=== PATIENT | female | born 1990 | race Caucasian/White ===

== ENCOUNTER 2018-02-26 04:11 | Inpatient (IN) | payer BC ==
[2018-02-26] MEDS ORDERED: Ibuprofen TAB* 600 MG ONE (04:31)
[2018-02-26] MEDS ORDERED: OXYTOCIN* 10 UNITS/ML 1 ML VIAL IM ONE (04:54)
[2018-02-26] MEDS ORDERED: RHO D Immune Globulin (HUMAN)* 300 MCG = 1,500 I.U. INJ IM ONE (04:54)
[2018-02-26] MEDS ORDERED: Acetaminophen TAB* 325 MG PO PRN (04:54)
[2018-02-26] MEDS ORDERED: Dibucaine 1% 28.35 GM TUBE PR PRN (04:54)
[2018-02-26] MEDS ORDERED: Witch Hazel PAD* JAR TOPICAL PRN (04:54)
[2018-02-26] MEDS ORDERED: Ibuprofen TAB* 600 MG PO PRN (04:54)
[2018-02-26] MEDS ORDERED: Measles, Mumps,Rubella VACC* 0.5 ML/VIAL SUBCUT ONE (04:54)
[2018-02-26] MEDS ORDERED: Glycerin ADULT SUPP PR PRN (04:54)
--- NOTE | 2018-02-26 05:11 | HP ---
General Information - General Information Maternal Age: 27 Grav: 2 Para: 1 SAB: 0 IEA: 0 Estimated Due Date: 03/01/18 Determined By: LMP Gestational Age in Weeks and Days: 39 Weeks and 4 Days Maternal Blood Type and Rh: A Negative - Results this Serology/RPR Result: Non-Reactive Rubella Result: Immune HBsAg Result: Negative HIV Result: Negative GBS Culture Result: Negative Past Medical History Delivery History: Hx Uncomplicated Vaginal Delivery Pertinent Past Medical History: Non-Contributory Pertinent Past Surgical History: See Records Pertinent Family History: Non-Contributory - rubella equivocal x 2 Review of Systems Constitutional: Comfortable CV Complaint: No Respiratory: Shortness of Breath: No Gastrointestinal: Normal Bowel Movement Genitourinary: Bleeding Neurological: No Headache - Comments ROS completed after delivery Exam Allergies/Adverse Reactions: Allergies No Known Allergies Allergy (Verified 05/05/16 17:46) 106/64, 98-68-18 after delivery - Measurements Height: 5 ft 3 in Weight: 177 lb Weight in lbs: 177 Body Mass Index (BMI): 31.3 Pre- Weight: 130 lb Weight Gained This : 47 lbs and 0 ozs - Exam Breast: - - soft, no masses Extremities: Edema - trace Heart: Normal Rhythm/Heart Sounds HEENT: No Significant Findings Lungs: Clear Bilaterally Reflexes: DTR 2+ Thyroid: No Thyromegaly - Abdominal Exam Abdomen Exam: Non-Tender Abdomen Exam Comment: fundus firm - Ultrasound/Biophysical Profile Ultrasound Status: Not Done Assessment/Plan - Plan Plan Comment: Assessment: at 39w 4 d, precipitous labor and delivery Rh negative Shoulder dystocia See delivery note Plan: routine PP care Pitocin 10 u IM given - Date/Time of Admission Date of Admission: 02/26/18 Time of Admission: 04:10
[2018-02-26] MEDS ORDERED: Phenylephrine IV* 40 MCG/ML 10 ML SYRINGE IV PUSH PRN ×2 (06:51)
[2018-02-26] MEDS ORDERED: Sodium Citrate/Citric Acid* 15 ML UDC PO PRN (06:51)
[2018-02-26] MEDS ORDERED: OBEPIDURAL* 250 ML EPIDURAL SCH (07:00)
[2018-02-26] MEDS: Docusate CAP* 100 MG PO SCH ×3 (09:08→20:26)
[2018-02-27 06:43] LABS: Hematocrit 38 % (35-47); Hemoglobin 12.7 g/dl (12.0-16.0); Mean Corpuscular HGB Conc 34 g/dl (31-36); Mean Corpuscular Hemoglobin 27 pg (27-31); Mean Corpuscular Volume 81 fL (80-97); Platelet Count 117 10^3/ul (150-450); Red Blood Count 4.65 10^6/ul (4.00-5.40); Red Cell Distribution Width 17 % (10.5-15); White Blood Count 9.2 10^3/ul (3.5-10.8)
[2018-02-27 07:31] LABS: ABS Basophils 0.1 10^3/ul (0-0.2); ABS Eosinophils 0.3 10^3/ul (0-0.6); ABS Lymphocytes 1.7 10^3/ul (1.0-4.8); ABS Monocytes 0.5 10^3/ul (0-0.8); ABS Neutrophils 6.7 10^3/ul (1.5-7.7); ABS Nucleated RBC 0 10^3/ul; Eosinophil % 3.1 % (0-6); Lymphocyte % 18.5 % (25-47); Nucleated Red Blood Cells % 0.1
[2018-02-27] MEDS ORDERED: Ferrous Gluconate TAB* 324 MG TAB PO SCH (09:00)
[2018-02-27 09:41] VITALS: BP 113/72
[2018-02-27] MEDS: Docusate CAP* 100 MG PO SCH (10:00)
== END 2018-02-27 14:20 | disposition home or self-care (01) | DRG 560 ==
LOC: MCHOBOUT 04:11 → MCHOB 04:14
PROVIDERS: ADMIT Midwife; ATTEND Midwife
PROC: 10E0XZZ Delivery of Products of Conception, External Approach (ICD-10-PCS; principal; 2018-02-26)
PROC: 0HQ9XZZ Repair Perineum Skin, External Approach (ICD-10-PCS; 2018-02-26)
DX: O66.0 Obstructed labor due to shoulder dystocia (principal); O70.0 First degree perineal laceration during delivery; O77.0 Labor and delivery complicated by meconium in amniotic fluid; O62.3 Precipitate labor; Z3A.39 39 weeks gestation of pregnancy; Z37.0 Single live birth
CPT/HCPCS: 36415; 85025; 90707; A9270-GY; J2590

== ENCOUNTER 2018-06-25 09:16 | Emergency (ER) | payer BC ==
[2018-06-25] MEDS ORDERED: Ondansetron ODT TAB* 4 MG PO ONE (10:56)
[2018-06-25] MEDS ORDERED: NS 0.9% 1000 ML* 1,000 ML IV ONE (11:00)
--- NOTE | 2018-06-25 11:52 | UC ---
UC General HPI - HPI Summary HPI Summary: Pt c/o sudden on set of nausea and vomiting, generalized malaise X 5 days. Pt reports that she has not been able to "Keep anything down" and "feels terrible" . - History of Current Complaint Chief Complaint: UCGeneralIllness Stated Complaint: VOMITING Time Seen by Provider: 06/25/18 10:51 Hx Obtained From: Patient Hx Last Menstrual Period: February 2017 Onset/Duration: Sudden Onset, Lasting Days, Still Present, Worse Since - osnet Timing: Constant Onset Severity: Moderate Current Severity: Moderate Pain Intensity: 0 Associated Signs & Symptoms: Positive: Abdominal Pain, Nausea, Vomiting - Allergy/Home Medications Allergies/Adverse Reactions: Allergies Allergy/AdvReac Type Severity Reaction Status Date / Time No Known Allergies Allergy Verified 06/25/18 10:00 Home Medications: Home Medications Control 28 mg PO DAILY WITH MEAL 06/25/18 [History Confirmed 06/25/18] PMH/Surg Hx/FS Hx/Imm Hx Previously Healthy: Yes - Surgical History Surgical History: Yes Surgery Procedure, Year, and Place: EYE SURGERY - Family History Known Family History: Positive: Cardiac Disease Negative: Blood Disorder - Social History Occupation: Employed Full-time Lives: With Family Alcohol Use: Weekly Substance Use Type: None Smoking Status (MU): Never Smoked Tobacco Have You Smoked in the Last Year: No - Immunization History Most Recent Influenza Vaccination: 07/03/15 Most Recent Tetanus Shot: 05/16/15 Most Recent Pneumonia Vaccination: not indicated Review of Systems Constitutional: Chills, Fatigue Skin: Negative Eyes: Negative ENT: Negative Respiratory: Negative Cardiovascular: Negative Gastrointestinal: Abdominal Pain, Vomiting, Nausea Genitourinary: Negative Motor: Weakness Neurovascular: Negative Musculoskeletal: Myalgia Neurological: Headache Psychological: Negative Is Patient Immunocompromised?: No All Other Systems Reviewed And Are Negative: Yes Physical Exam Triage Information Reviewed: Yes Appearance: Ill-Appearing Vital Signs: Initial Vital Signs Temp 98.3 F 06/25/18 09:56 Pulse 113 06/25/18 09:56 Resp 18 06/25/18 09:56 BP 107/71 06/25/18 09:56 Pulse Ox 99 06/25/18 09:56 Vital Signs Reviewed: Yes Eye Exam: Normal Eyes: Positive: Conjunctiva Inflamed ENT: Positive: Hearing grossly normal Dental Exam: Normal Neck exam: Normal Respiratory Exam: Normal Cardiovascular Exam: Normal Abdomen Description: Positive: Other: - generalized abdominal tenderness Bowel Sounds: Positive: Present, Hypoactive Musculoskeletal Exam: Normal Neurological Exam: Normal Psychological Exam: Normal Skin Exam: Normal Course/Dx - Differential Dx - Multi-Symptom Provider Diagnoses: acute nausea and vomiting Discharge - Sign-Out/Discharge Documenting (check all that apply): Patient Departure All imaging exams completed and their final reports reviewed: No Studies - Discharge Plan Condition: Stable Disposition: HOME Prescriptions: Ondansetron HCl [Zofran] 8 mg PO Q8H PRN #21 tablet PRN Reason: Nausea Prochlorperazine SUPP* [Compazine Supp*] 25 mg IL Q12H PRN #6 supp PRN Reason: Vomiting Patient Education Materials: Acute Nausea and Vomiting (ED) Referrals: Aliya Agarwal MD [Primary Care Provider] - If Needed Additional Instructions: Please follow up with your PCP as needed. If symptoms worsen, please go directly to the closest emergency room. - Billing Disposition and Condition Condition: STABLE Disposition: Home - Attestation Statements Provider Attestation: I was available for consult. This patient was seen by the [facility]. The patient was not presented to, seen by, or examined by me. -Edenilson
[2018-06-25 11:54] VITALS: BP 104/57
== END 2018-06-25 12:39 | disposition home or self-care (01) ==
LOC: UCCORT 09:16
DX: R11.2 Nausea with vomiting, unspecified (principal)
CPT/HCPCS: 99212; A9270-GY; G0463

== ENCOUNTER 2020-03-24 08:59 | Inpatient (IN) ==
[2020-03-24] MEDS ORDERED: Lactated Ringers 1000 ml BAG 1,000 ML IV ONE (09:59)
[2020-03-24] MEDS ORDERED: Lactated Ringers 1000 ml BAG 1,000 ML IV SCH ×2 (10:00→18:00)
[2020-03-24 10:32] LABS: Urine Benzodiazepine Screen None Detected (None Detect); Urine Opiates Screen None Detected (None Detect)
[2020-03-24] MEDS ORDERED: Oxytocin in LR 20 UNITS/1,000 ML BAG IVPB SCH ×2 (13:00→18:00)
[2020-03-24 13:21] LABS: ABS Basophils 0.1 10^3/ul (0-0.2); ABS Eosinophils 0.1 10^3/ul (0-0.6); ABS Lymphocytes 1.8 10^3/ul (1.0-4.8); ABS Monocytes 0.5 10^3/ul (0-0.8); Eosinophil % 0.7 %; Hematocrit 34 % (35-47); Hemoglobin 11.9 g/dL (12.0-16.0); Lymphocyte % 21.3 %; Mean Corpuscular HGB Conc 35 g/dL (31-36); Mean Corpuscular Hemoglobin 28 pg (27-31); Mean Corpuscular Volume 82 fL (80-97); Mean Platelet Volume 10.7 fL (7.4-10.4); Platelet Count 148 10^3/uL (150-450); Red Blood Count 4.19 10^6 /uL (3.70-4.87); Red Cell Distribution Width 16 % (10-15); White Blood Count 8.7 10^3/uL (3.5-10.8)
[2020-03-24] MEDS ORDERED: Witch Hazel PAD JAR TOPICAL PRN (18:00)
[2020-03-24] MEDS ORDERED: Dibucaine 1% OINT 28.35 GM TUBE PR PRN (18:00)
[2020-03-24] MEDS ORDERED: RHO D Immune Globulin (HUMAN) 300 MCG = 1,500 I.U. INJ IM ONE (18:00)
[2020-03-24] MEDS ORDERED: Glycerin ADULT 2.4 gm SUPP PR PRN (18:00)
[2020-03-25 08:21] LABS: ABS Basophils 0.1 10^3/ul (0-0.2); ABS Eosinophils 0.1 10^3/ul (0-0.6); ABS Lymphocytes 1.7 10^3/ul (1.0-4.8); ABS Monocytes 0.7 10^3/ul (0-0.8); Eosinophil % 0.6 %; Hematocrit 33 % (35-47); Hemoglobin 11.4 g/dL (12.0-16.0); Mean Corpuscular HGB Conc 35 g/dL (31-36); Mean Corpuscular Hemoglobin 28 pg (27-31); Mean Corpuscular Volume 82 fL (80-97); Mean Platelet Volume 10.8 fL (7.4-10.4); Nucleated Red Blood Cells % 0.1; Platelet Count 130 10^3/uL (150-450); Red Blood Count 4.02 10^6 /uL (3.70-4.87); Red Cell Distribution Width 16 % (10-15); White Blood Count 9.9 10^3/uL (3.5-10.8)
[2020-03-26 08:01] VITALS: BP 112/71
== END 2020-03-26 10:33 | disposition home or self-care (01) | DRG 560 ==
LOC: MCHOBOUT 08:59 → MCHOB 09:55
PROVIDERS: ADMIT Midwife; ATTEND Midwife